=== PATIENT | male | born 1990 | race Asian ===

== ENCOUNTER 2021-03-08 10:50 | Outpatient (CLI) | payer BC ==
[~2021-03-08 10:50] MED LIST: Magnevist 469MG/ML 20 ML VIAL ONE
== END 2021-03-08 10:51 | disposition home or self-care (01) ==
LOC: MRI 10:50
PROVIDERS: ATTEND Physician Assistant Medical
DX: R16.0 Hepatomegaly, not elsewhere classified (principal); R10.11 Right upper quadrant pain; K59.00 Constipation, unspecified; K76.89 Other specified diseases of liver; Z83.1 Family history of other infectious and parasitic diseases
CPT/HCPCS: 74183